=== PATIENT | female | born 1995 | race Caucasian/White ===

== ENCOUNTER 2018-05-24 21:00 | Emergency (ER) | payer BC ==
[2018-05-24 22:24] LABS: URINE BLOOD (Dip) POC Negative (NEGATIVE); URINE GLUCOSE (Dip) POC Negative (NEGATIVE); URINE KETONES (Dip) POC Negative (NEGATIVE); URINE LEUKOCYTE EST (Dip) POC 1+ (NEGATIVE); URINE NITRITE (Dip) POC Negative (NEGATIVE); URINE TOTAL PROTEIN POC Negative (NEGATIVE)
[2018-05-24 22:26] LABS: WHITE BLOOD COUNT 7.7 10^3/ul (4.8-10.8)
[2018-05-24 22:26] LABS: ABNORMAL IP MESSAGE 1; BASOPHILS % 0.3 % (0.0-2.0); EOSINOPHILS # 0.1 10^3/ul (0.0-0.5); EOSINOPHILS % 0.9 % (0.0-7.0); HEMATOCRIT 36.1 % (37.0-47.0); HEMOGLOBIN 10.9 g/dl (12.0-16.0); LYMPHOCYTES # 3.6 10^3/ul (0.8-2.9); LYMPHOCYTES % 46.7 % (15.0-51.0); MEAN CORPUSCULAR HEMOGLOBIN 21.9 pg (29.0-33.0); MEAN CORPUSCULAR HGB CONC 30.2 g/dl (32.0-37.0); MEAN CORPUSCULAR VOLUME 72.6 fl (82.0-101.0); MEAN PLATELET VOLUME 10.6 fl (7.4-10.4); MONOCYTE # 0.5 10^3/ul (0.3-0.9); MONOCYTES % 6.5 % (0.0-11.0); NEUTROPHIL # 3.5 10^3/ul (1.6-7.5); NEUTROPHILS % 45.5 % (39.0-77.0); PLATELET COUNT 218 10^3/UL (140-415); RED BLOOD COUNT 4.97 10^6/ul (4.20-5.40)
[2018-05-24 22:27] LABS: ADD MAN DIFF? NO
[2018-05-24 22:29] LABS: POSITIVE DIFF @See below
[2018-05-24] MEDS: PANTOPRAZOLE 40 MG INJ IV (22:33)
[2018-05-24] MEDS: KETOROLAC 15 MG INJ IV (22:33)
[2018-05-24] MEDS: ONDANSETRON 4 MG INJ IV (22:33)
[2018-05-24] MEDS: LACTATED RINGER'S 1,000 ML IV (22:34)
[2018-05-24 22:52] LABS: LIPASE 72 U/L (23-300)
[2018-05-25] MEDS: CEPHALEXIN 500 MG CAP PO (01:14)
== END 2018-05-25 01:59 | disposition home or self-care (01) ==
LOC: FTE 05-25 01:59
DX: N30.00 Acute cystitis without hematuria (principal); R10.2 Pelvic and perineal pain
CPT/HCPCS: 36415; 74176; 81003; 81025; 83690; 85025; 96374; 96375; 99285-25